=== PATIENT | female | born 1995 | race American Indian/Alaskan Native ===

== ENCOUNTER 2019-04-25 17:06 | Emergency (ER) | payer MEDICAID ==
[2019-04-25 17:17] VITALS: BP 110/51; PULSE 96
[2019-04-25 17:50] LABS: CHLORIDE,CL 103 mEq/L (98-106); SODIUM,NA 139 mEq/L (136-145)
[2019-04-25] MEDS ORDERED: Lidocaine 1% 20 ML MDV ONE (18:07)
[2019-04-25] MEDS ORDERED: cefTRIAXone 1 GM Vial IM ONE (18:19)
[2019-04-25] MEDS ORDERED: Acetaminophen 325 MG Tab PO ONE (18:20)
--- NOTE | 2019-04-25 18:36 | EDM.PDOC ---
ED HPI GENERAL MEDICAL PROBLEM - General Chief Complaint: Gastrointestinal Problem Stated Complaint: abd and back pain Time Seen by Provider: 04/25/19 18:10 Source of Information: Reports: Patient History Limitations: Reports: No Limitations - History of Present Illness INITIAL COMMENTS - FREE TEXT/NARRATIVE: Luna is a 23 yo female who presents to the ED via [facility] with complaints of low abdominal/flank pain. States the pain initially started a couple hours prior to calling the ambulance. States she is 4 days post with normal vaginal delivery at full term. Was discharged home on the and states she was doing okay. Admits to history of UTI's. States the pain currently has subsided. Was concerned as the pain came out of no where and was about an 8 out of 10. States it felt like she was having contractions again. Denies any abnormal vaginal bleeding. States she hasn't had any foul odor or discharge. Admits to burning with urination. Lower Abdominal Pain Score (Numeric/FACES): 8 - Related Data Allergies Allergy/AdvReac Type Severity Reaction Status Date / Time No Known Allergies Allergy Verified 04/25/19 17:16 Home Meds: Home Meds . [No Known Home Meds] 04/25/19 [History] Past Medical History - Past Health History Medical/Surgical History: Denies Medical/Surgical History HEENT History: Reports: Impaired Vision Other HEENT History: wears glasses Cardiovascular History: Reports: None Respiratory History: Reports: None Gastrointestinal History: Reports: GERD Genitourinary History: Reports: Renal Calculus, STD, UTI, Recurrent RED LEADER History: Reports: Musculoskeletal History: Reports: None Neurological History: Reports: None Psychiatric History: Reports: Anxiety, Bipolar, Depression Endocrine/Metabolic History: Reports: None Hematologic History: Reports: Anemia Immunologic History: Reports: None Oncologic (Cancer) History: Reports: None Dermatologic History: Reports: None - Infectious Disease History Infectious Disease History: Reports: None - Past Surgical History HEENT Surgical History: Reports: Adenoidectomy, Tonsillectomy GI Surgical History: Reports: Other (See Below) Other GI Surgeries/Procedures: abdominal surgery to remove foreign objects from stomach. Female Surgical History: Reports: None Endocrine Surgical History: Reports: None Social & Family History - Family History Family Medical History: Noncontributory - Tobacco Use Smoking Status *Q: Former Smoker Used Tobacco, but Quit: Yes Month/Year Tobacco Last Used: 07/2018 - Caffeine Use Caffeine Use: Reports: Soda - Recreational Drug Use Recreational Drug Use: No - Living Situation & Occupation Living situation: Reports: , with Family Occupation: Employed ED ROS GENERAL - Review of Systems Review Of Systems: See Below Constitutional: Reports: Fever HEENT: Reports: No Symptoms Respiratory: Reports: No Symptoms Cardiovascular: Reports: No Symptoms GI/Abdominal: Reports: Abdominal Pain. Denies: Constipation, Diarrhea, Nausea, Vomiting : Reports: Dysuria, Frequency, Hematuria, Pain Musculoskeletal: Reports: Back Pain Skin: Reports: No Symptoms ED EXAM, RENAL/ - Physical Exam Exam: See Below Exam Limited By: No Limitations General Appearance: Alert, No Apparent Distress Head: Atraumatic, Normocephalic Neck: Normal Inspection, Supple Respiratory/Chest: No Respiratory Distress, Lungs Clear, Normal Breath Sounds, No Accessory Muscle Use Cardiovascular: Normal Peripheral Pulses, Regular Rate, Rhythm, No Edema, No Murmur GI/Abdominal: Soft, No Organomegaly, No Mass, Tender (suprapubic) Neurological: Alert, Oriented, No Motor/Sensory Deficits Psychiatric: Normal Affect, Normal Mood Skin Exam: Warm, Dry, Intact, Normal Color, No Rash Course - Vital Signs Last Recorded V/S: Last Vital Signs Temp 101.9 F H 04/25/19 17:47 Pulse 96 04/25/19 17:13 Resp 22 H 04/25/19 17:13 BP 110/51 L 04/25/19 17:13 Pulse Ox 98 04/25/19 17:13 - Orders/Labs/Meds Orders: Active Orders 24 hr Category Date Time Status CULTURE URINE [RM] Stat Lab 04/25/19 17:50 Received Labs: Laboratory Tests 04/25/19 04/25/19 04/25/19 Range/Units 17:25 17:25 17:50 WBC 13.4 H (5.0-10.0) 10^3/uL RBC 3.69 L (4.00-5.50) 10^6/uL Hgb 9.1 L (12.0-16.0) g/dL Hct 28.9 L (37.0-47.0) % MCV 78.3 L (82.0-94.0) fL MCH 24.7 L (27.0-32.0) pg MCHC 31.5 L (33.0-38.0) g/dL RDW Coeff of Ning 15.3 H (11.0-15.0) % Plt Count 207 (150-400) 10^3/uL Add Manual Diff Yes Neutrophils % (Manual) 83 (35-85) % Band Neutrophils % 2 (0-5) % Lymphocytes % (Manual) 9 L (21-55) % Monocytes % (Manual) 5 (2-12) % Eosinophils % (Manual) 1 (0-5) % Absolute Neutrophils 11.39 H (1.80-7.00) 10^3/uL Lymphocytes # (Manual) 1.21 (1.00-4.80) 10^3/uL Monocytes # (Manual) 0.67 (0.00-0.80) 10^3/uL Eosinophils # (Manual) 0.13 (0.00-0.45) 10^3/uL Platelet Estimate Adequate (ADEQUATE) Microcytosis 2+ moderate H (NOT SEEN) Sodium 139 (136-145) mEq/L Potassium 3.5 (3.5-5.0) mEq/L Chloride 103 (98-106) mEq/L Carbon Dioxide 26 (21-32) mmol/L BUN 5 L (7-18) mg/dL Creatinine 0.7 (0.6-1.0) mg/dL Est Cr Clr Drug Dosing 103.40 mL/min Estimated GFR (MDRD) > 60 (>=60) mL/min Glucose 81 (75-99) mg/dL Calcium 8.4 (8.4-10.1) mg/dL Total Bilirubin 0.2 (0.0-1.0) mg/dL AST 39 H (15-37) U/L ALT 45 (12-78) U/L Alkaline Phosphatase 128 H (46-116) U/L C-Reactive Protein 8.9 H (0.2-0.8) mg/dL Total Protein 6.1 L (6.4-8.2) g/dL Albumin 2.2 L (3.4-5.0) g/dL Urine Color Yellow (YELLOW) Urine Appearance Slightly cloudy (CLEAR) Urine pH 8.0 (4.5-8.0) Ur Specific [place] 1.015 (1.003-1.020) Urine Protein 30 H (NEGATIVE) mg/dL Urine Glucose (UA) Negative (NEGATIVE) mg/dL Urine Ketones Negative (NEGATIVE) mg/dL Urine Occult Blood Large H (NEGATIVE) Urine Nitrite Negative (NEGATIVE) Urine Bilirubin Negative (NEGATIVE) Urine Urobilinogen 1.0 (0.2-1.0) EU/dL Ur Leukocyte Esterase Small H (NEGATIVE) Urine RBC 75-100 H (0-5) /HPF Urine WBC 50-75 H (0-5) /HPF Ur Squamous Epith Cells Occasional H (NOT SEEN) /HPF Urine Bacteria Few H (NOT SEEN) /HPF Urinalysis Comment Meds: Medications Discontinued Medications Generic Name Dose Route Start Last Admin Trade Name Freq PRN Reason Stop Dose Admin Acetaminophen 650 mg 04/25/19 18:20 04/25/19 18:28 Tylenol PO 04/25/19 18:21 650 mg NOW ONE Administration Ceftriaxone Sodium 1 gm 04/25/19 18:19 04/25/19 18:28 Rocephin IM 04/25/19 18:20 1 gm ONETIME ONE Administration Lidocaine HCl Confirm 04/25/19 18:07 04/25/19 18:29 Xylocaine 1% Administered 04/25/19 18:08 2.1 ml Dose Administration 20 ml .ROUTE .STK-MED ONE - Re-Assessments/Exams Free Text/Narrative Re-Assessment/Exam: Initially, I was called to the hospital for a critical patient. While attending to the critical patient, Luna had stated the pain subsided to the nurse and wanted to leave. She did sign an AMA. I did go down and evaluate patient and advised she did have a UTI on her urinalysis with an elevated WBC and CRP level. 1000mg of Tylenol was given orally with 1 gram of IV Rocephin. Recommend obtaining CT of the abdomen/pelvis, which Luna declined. Departure - Departure Time of Disposition: 18:40 Disposition: Against Medical Advice 07 Clinical Impression: anemia, UTI Abdominal pain Qualifiers: Abdominal location: lower abdomen, unspecified Qualified Code(s): R10.30 - Lower abdominal pain, unspecified - Discharge Information Instructions: Abdominal Pain, Adult, Urinary Tract Infection, Adult, Easy-to- Read, Abdominal Pain, Adult, Uxed-gs-Caow Referrals: CHARLES GUTIERREZ,JAGRUTI Lopez [Other] Additional Instructions: 1) 1 gram of Rocephin (antibiotic) given intramuscularly 2) Prescription of Bactrim sent to [facility] in [place] 3) Alternate Tylenol and ibuprofen for fever 4) If pain returns, any new onset of symptoms, unable to break fevers or any concerns at all, advise returning immediately to ED. Sepsis Event Note - Evaluation Sepsis Screening Result: No Definite Risk - Focused Exam Vital Signs: Vital Signs Temp Pulse Resp BP Pulse Ox 04/25/19 17:47 101.9 F H 04/25/19 17:13 102.2 F H 96 22 H 110/51 L 98 Date Exam was Performed: 04/25/19 Time Exam was Performed: 18:30 - Problem List & Annotations (1) UTI (urinary tract infection) SNOMED Code(s): 44189562 Code(s): N39.0 - URINARY TRACT INFECTION, SITE NOT SPECIFIED Status: Acute Current Visit: No Qualifiers: Urinary tract infection type: site unspecified Hematuria presence: with hematuria Qualified Code(s): N39.0 - Urinary tract infection, site not specified; R31.9 - Hematuria, unspecified (2) Abdominal pain SNOMED Code(s): 91689641 Code(s): R10.9 - UNSPECIFIED ABDOMINAL PAIN Status: Acute Current Visit: Yes Qualifiers: Abdominal location: lower abdomen, unspecified Qualified Code(s): R10.30 - Lower abdominal pain, unspecified (3) UTI SNOMED Code(s): 905069082 Code(s): O86.20 - URINARY TRACT INFECTION FOLLOWING DELIVERY, UNSPECIFIED Status: Acute Current Visit: Yes (4) anemia SNOMED Code(s): 144780272 Code(s): O90.81 - ANEMIA OF THE PUERPERIUM Status: Acute Current Visit: Yes - My Orders Last 24 Hours: My Active Orders 04/25/19 17:50 CULTURE URINE [RM] Stat - Assessment/Plan Last 24 Hours: My Active Orders 04/25/19 17:50 CULTURE URINE [RM] Stat Plan: Patient again signed AMA paperwork as she didn't want any further work up. Advise undergoing CT of the abdomen/pelvis, which Luna declined. Patient will leave against medical advice and understands risks involved.
== END 2019-04-25 19:05 | disposition left against medical advice (07) ==
LOC: CC.ED 17:06
DX: O90.81 Anemia of the puerperium (principal); O86.20 Urinary tract infection following delivery, unspecified; Z87.891 Personal history of nicotine dependence
CPT/HCPCS: 36415; 80053; 81001; 85025; 86140; 87086; 96372; 99284; A9270; J0696; J2001